=== PATIENT | male | born 1935 | race Caucasian/White ===

== ENCOUNTER 2016-07-27 08:47 | Observation (INO) | payer MEDICARE, BC ==
--- NOTE | 2016-07-27 09:15 | RADIOLOGY REPORT (SQ) ---
EXAM DESCRIPTION: CT HEAD WITHOUT COMPLETED DATE/TIME: 07/27/2016 8:57 am REASON FOR STUDY: bed 15 stroke alert COMPARISON: None. TECHNIQUE: Axial images acquired through the brain without intravenous contrast. Images reviewed wi th bone, brain and subdural windows. Images stored on PACS. All CT scanners at this facility use dose modulation, iterative reconstruction, and/or weight based d osing when appropriate to reduce radiation dose to as low as reasonably achievable (ALARA). [facility]: Dose Right [facility]: CareDose [facility]: Dose Right [facility]: Teradose 4D [facility]: [employer] RADIATION DOSE: 64.61 mGy. LIMITATIONS: None. FINDINGS: VENTRICLES: Normal size and contour. CEREBRUM: There is bifrontal and biparietal moderate chronic small vessel ischemic change in the abe spheric white matter. No CT evidence of large territory acute ischemic change, acute intracranial hemorrhage, mass effect, or midline shift. CEREBELLUM: No masses. No hemorrhage. No alteration of density. No evidence for acute infarction. EXTRAAXIAL SPACES: No fluid collections. No masses. ORBITS AND GLOBE: No intra- or extraconal masses. Normal contour of globe without masses. CALVARIUM: No fracture. PARANASAL SINUSES: No fluid or mucosal thickening. SOFT TISSUES: No mass or hematoma. OTHER: No other significant finding. IMPRESSION: White matter disease. No acute changes COMMENT: Pertinent findings on the imaging study reported as a CRITICAL RESULT to VENITA Hernandez, charge nurse at09:00 on 07/27/2016. Category of Critical Result: CT stroke alert TECHNICAL DOCUMENTATION: JOB ID: [id number] Quality ID # [id number]: Final reports with documentation of one or more dose reduction techniques (e.g., Au tomated exposure control, adjustment of the mA and/or kV according to patient size, use of iterative reconstruction technique) 2010 [employer] All Rights Reserved
[2016-07-27 09:38] LABS: PROTHROMBIN TIME 12.7 SEC (11.4-15.4)
[2016-07-27 09:39] LABS: PARTIAL THROMBOPLASTIN TIME 25.4 SEC (23.5-35.8)
[2016-07-27 09:43] LABS: ABSOLUTE LYMPHOCYTES (AUTO) 0.7 10^3/uL (0.5-4.7); ABSOLUTE MONOCYTES (AUTO) 0.4 10^3/uL (0.1-1.4); ABSOLUTE NEUT (AUTO) 6.5 10^3/uL (1.7-8.2); BASOPHILS % (AUTO) 0.1 % (0-2); HEMATOCRIT 41.1 % (37.9-51.0); HEMOGLOBIN 13.6 g/dL (13.5-17.0); HGB HCT DIFFERENCE -0.3; LYMPHOCYTES % (AUTO) 9.6 % (13-45); MEAN CORPUSCULAR HEMOGLOBIN 32.5 pg (27.0-33.4); MEAN CORPUSCULAR HGB CONC 33.2 g/dL (32.0-36.0); MEAN CORPUSCULAR VOLUME 98 fl (80-97); MONOCYTES % (AUTO) 5.3 % (3-13); RED CELL DISTRIBUTION WIDTH 13.5 % (11.5-14.0); WHITE BLOOD COUNT 7.7 10^3/uL (4.0-10.5)
--- NOTE | 2016-07-27 09:46 | RADIOLOGY REPORT (SQ) ---
EXAM DESCRIPTION: CHEST SINGLE VIEW COMPLETED DATE/TIME: 07/27/2016 9:01 am REASON FOR STUDY: bed 15 stroke alert COMPARISON: None. EXAM PARAMETERS: NUMBER OF VIEWS: One view. TECHNIQUE: Single frontal radiographic view of the chest acquired. RADIATION DOSE: NA LIMITATIONS: None. FINDINGS: LUNGS AND PLEURA: No opacities, masses or pneumothorax. No pleural effusion. MEDIASTINUM AND HILAR STRUCTURES: No masses. Contour normal. HEART AND VASCULAR STRUCTURES: Heart normal in size. Normal vasculature. BONES: No acute findings. HARDWARE: None in the chest. OTHER: No other significant finding. IMPRESSION: NO ACUTE RADIOGRAPHIC FINDING IN THE CHEST. TECHNICAL DOCUMENTATION: JOB ID: [id number]
[2016-07-27 10:03] LABS: ALANINE AMINOTRANSFERASE 39 U/L (21-72); ALBUMIN 4.2 g/dL (3.5-5.0); ALKALINE PHOSPHATASE 69 U/L (38-126); ANION GAP 11 (5-19); ASPARTATE AMINO TRANSFERASE 35 U/L (17-59); BILIRUBIN,DIRECT 0.3 mg/dL (0.0-0.4); BILIRUBIN,TOTAL 0.7 mg/dL (0.2-1.3); BLOOD UREA NITROGEN 18 mg/dL (7-20); CALCIUM 9.6 mg/dL (8.4-10.2); CARBON DIOXIDE 26 mmol/L (22-30); CHLORIDE 98 mmol/L (98-107); CREATINE KINASE 397 U/L (55-170); CREATININE RESULT 0.96 mg/dL (0.52-1.25); GLUCOSE 110 mg/dL (75-110); POTASSIUM 4.4 mmol/L (3.6-5.0); SODIUM 134.8 mmol/L (137-145)
[2016-07-27 10:11] LABS: CREATINE KINASE MB 3.35 ng/mL (<4.55)
[2016-07-27 10:14] LABS: TROPONIN I < 0.012 ng/mL
--- NOTE | 2016-07-27 10:44 | ER Document Report ---
ED General - General Chief Complaint: Slurred Speech Stated Complaint: SLURRED SPEECH Time Seen by Provider: 07/27/16 09:35 - HPI Patient complains to provider of: Strokelike symptoms Notes: Coming in today for evaluation of strokelike symptoms. Upon my evaluation patient is by himself. Patient states he was trying to eat breakfast this morning when he became confused did not understand how the breath is also states the he was told he had slurred speech by his at this time the patient is a and O 3 able to carry on normal conversation with no slurred speech. Patient states he does feel better like his symptoms had resolved. Denies any recent fevers chills nausea vomiting denies any recent head trauma denies a history of ND or stroke in the past. Patient is unable to remember his medication list - Related Data Allergies/Adverse Reactions: Penicillins Allergy (Severe, Verified 03/16/12 20:06) Hives Home Medications: Current Home Medications Naproxen 500 mg PO BIDBS 07/27/16 [History] Pravastatin Sodium [Pravachol] 40 mg PO QHS 07/27/16 [History] Past Medical History - Social History Smoking Status: Never Smoker Frequency of alcohol use: None Drug Abuse: None Family History: Reviewed & Not Pertinent - Past Medical History Cardiac Medical History: Reports: Hx Hypercholesterolemia, Hx Hypertension Denies: Hx Coronary Artery Disease, Hx Heart Attack Pulmonary Medical History: Denies: Hx Asthma, Hx Bronchitis, Hx COPD, Hx Pneumonia Neurological Medical History: Denies: Hx Cerebrovascular Accident, Hx Seizures GI Medical History: Reports: Hx Gastroesophageal Reflux Disease. Denies: Hx Hepatitis, Hx Hiatal Hernia, Hx Ulcer Musculoskeltal Medical History: Reports Hx Arthritis - mild Infectious Medical History: Denies: Hx Hepatitis Past Surgical History: Reports: Hx Tonsillectomy. Denies: Hx Open Heart Surgery , Hx Pacemaker - Immunizations Immunizations up to date: No Hx Diphtheria, Pertussis, Tetanus Vaccination: No Review of Systems - Review of Systems Constitutional: No symptoms reported EENT: No symptoms reported Cardiovascular: No symptoms reported Respiratory: No symptoms reported Gastrointestinal: No symptoms reported Genitourinary: No symptoms reported Male Genitourinary: No symptoms reported Musculoskeletal: No symptoms reported Skin: No symptoms reported Hematologic/Lymphatic: No symptoms reported Neurological/Psychological: Other - Alert speech confusion -: Yes All other systems reviewed and negative Physical Exam - Vital signs Vitals: Pulse Resp BP Pulse Ox 85 20 161/98 H 98 07/27/16 08:50 07/27/16 08:50 07/27/16 08:50 07/27/16 08:50 Interpretation: Normal - General General appearance: Appears well, Alert - HEENT Head: Normocephalic, Atraumatic Eyes: Normal Pupils: PERRL - Respiratory Respiratory status: No respiratory distress Chest status: Nontender Breath sounds: Normal Chest palpation: Normal - Cardiovascular Rhythm: Regular Heart sounds: Normal auscultation Murmur: No - Abdominal Inspection: Normal Distension: No distension Bowel sounds: Normal Tenderness: Nontender Organomegaly: No organomegaly - Back Back: Normal, Nontender - Extremities General upper extremity: Normal inspection, Nontender, Normal color, Normal ROM , Normal temperature General lower extremity: Normal inspection, Nontender, Normal color, Normal ROM , Normal temperature, Normal weight bearing. 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 However patient is able to lift both of his arms and hold them with no pronator drift. Patient is able to tell me his address is name is . the date and the details of the morning events without difficulty Sensory: Normal - Psychological Associated symptoms: Normal affect, Normal mood - Skin Skin Temperature: Warm Skin Moisture: Dry Skin Color: Normal Course - Re-evaluation Re-evalutation: 07/27/16 14:49 07/27/16 15:14 Patient symptoms have resolved discussed with family members of the patient would not be a candidate for thrombolytic therapy. Lab work CT scan chest x- ray does not show any acute pathology. Patient will be admitted to the hospital service for further evaluation of his symptoms - Vital Signs Vital signs: Temp Pulse Resp BP Pulse Ox 97.2 F 85 18 158/86 H 96 07/27/16 08:55 07/27/16 12:00 07/27/16 12:00 07/27/16 12:00 07/27/16 12:00 - Laboratory Result Diagrams: 07/27/16 09:03 07/27/16 09:03 Laboratory results interpreted by me: 07/27/16 07/27/16 07/27/16 09:03 09:03 09:03 RBC 4.20 L MCV 98 H Seg Neutrophils % 85.0 H Lymphocytes % 9.6 L Sodium 134.8 L Creatine Kinase 397 H Vitamin B12 > 1000.0 H Discharge - Discharge Clinical Impression: Slurred speech resolved, Confusion resolved TIA (transient ischemic attack) Qualifiers: Transient cerebral ischemia type: unspecified Qualified Code(s): G45.9 - Transient cerebral ischemic attack, unspecified Disposition: ADMITTED OBSERVATION Admitting Provider: [facility] Admitted: Telemetry
--- NOTE | 2016-07-27 10:45 | EKG REPORT ---
SEVERITY:- ABNORMAL ECG - SINUS RHYTHM LEFT ATRIAL ABNORMALITY : Confirmed by: Antonio García 27-Jul-2016 10:44:31
[2016-07-27] MEDS ORDERED: ACETAMINOPHEN 325 MG TABLET PO PRN (11:10)
[2016-07-27] MEDS ORDERED: HYDROCODONE/ACETAMINOPHEN 5-325 MG TABLET PO PRN (11:10)
[2016-07-27] MEDS ORDERED: ONDANSETRON HCL INJ/PF 4 MG/2 ML SDV IV PRN (11:10)
[2016-07-27 11:38] LABS: APPEARANCE,URINE CLEAR; BILIRUBIN,URINE NEGATIVE (NEGATIVE); GLUCOSE, URINE NEGATIVE (NEGATIVE); KETONES,URINE NEGATIVE (NEGATIVE); LEUKOCYTE ESTERASE,URINE NEGATIVE (NEGATIVE); NITRITE,URINE NEGATIVE (NEGATIVE); PROTEIN,URINE NEGATIVE (NEGATIVE); URINE SPECIFIC GRAVITY 1.016; UROBILINOGEN,URINE NEGATIVE mg/dL (<2.0)
[2016-07-27] MEDS ORDERED: ENOXAPARIN SODIUM INJ 40 MG/0.4 ML DISP.SYRIN SUBCUT ONE (12:00)
--- NOTE | 2016-07-27 12:48 | RADIOLOGY REPORT (SQ) ---
EXAM DESCRIPTION: MRI HEAD WITHOUT COMPLETED DATE/TIME: 07/27/2016 12:33 pm REASON FOR STUDY: CVA, neurologic symptoms R53.1 WEAKNESS COMPARISON: CT brain 07/27/2016 TECHNIQUE: Multiplanar imaging includes non-contrasted T1, T2, FLAIR, and diffusion with ADC map seq uences. Images stored on PACS. LIMITATIONS: None. FINDINGS: ANATOMY: No developmental anomalies. Normal vascular flow voids. Pituitary fossa normal. CSF SPACES: Normal in size and contour. No hemorrhage. CEREBRUM AND CEREBELLUM: Chronic moderate white matter disease in the bifrontal and biparietal region s with increased FLAIR/ T2 signal. 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 Old lacunar infarct in the left mid aishwarya. No MR findings of acute ischemic change, acute intracranial hemorrhage, mass effect, or midline shift . Internal auditory canals, cerebello-pontine angles, mastoids normal. DIFFUSION IMAGING: Negative for acute or sub-acute infarction. ORBITS: No masses. Globes normal. PARANASAL SINUSES: No fluid levels. Mucosa normal. OTHER: No other significant finding. IMPRESSION: Chronic small vessel disease. No acute findings TECHNICAL DOCUMENTATION: JOB ID: [id number] [employer]- All Rights Reserved
[2016-07-27 21:16] LABS: ABSOLUTE LYMPHOCYTES (AUTO) 0.8 10^3/uL (0.5-4.7); ABSOLUTE MONOCYTES (AUTO) 0.8 10^3/uL (0.1-1.4); ABSOLUTE NEUT (AUTO) 7.4 10^3/uL (1.7-8.2); BASOPHILS % (AUTO) 0.1 % (0-2); EOSINOPHILS % (AUTO) 0.1 % (0-6); HEMATOCRIT 38.4 % (37.9-51.0); HEMOGLOBIN 12.7 g/dL (13.5-17.0); HGB HCT DIFFERENCE -0.3; LYMPHOCYTES % (AUTO) 9.2 % (13-45); MEAN CORPUSCULAR HEMOGLOBIN 32.1 pg (27.0-33.4); MEAN CORPUSCULAR HGB CONC 33.1 g/dL (32.0-36.0); MEAN CORPUSCULAR VOLUME 97 fl (80-97); MONOCYTES % (AUTO) 8.6 % (3-13); RED BLOOD COUNT 3.96 10^6/uL (4.35-5.55); RED CELL DISTRIBUTION WIDTH 13.5 % (11.5-14.0)
[2016-07-27 21:21] LABS: ANION GAP 11 (5-19); BLOOD UREA NITROGEN 20 mg/dL (7-20); CALCIUM 9.3 mg/dL (8.4-10.2); CARBON DIOXIDE 26 mmol/L (22-30); CHLORIDE 98 mmol/L (98-107); CREATININE RESULT 1.09 mg/dL (0.52-1.25); GLUCOSE 126 mg/dL (75-110); MAGNESIUM 2.1 mg/dL (1.6-2.3); POTASSIUM 3.9 mmol/L (3.6-5.0); SODIUM 134.7 mmol/L (137-145)
[2016-07-27] MEDS ORDERED: ATORVASTATIN CALCIUM 20 MG TABLET PO SCH (22:00)
[2016-07-28 05:53] LABS: CHOLESTEROL 171.26 mg/dL (0-200); Direct HDL 64 mg/dL (>40); TRIGLYCERIDES 122 mg/dL (<150)
[2016-07-28 06:04] LABS: DIRECT LDL 58 mg/dL (<100)
[2016-07-28] MEDS: ENOXAPARIN SODIUM INJ 40 MG/0.4 ML DISP.SYRIN SUBCUT SCH (07:50)
[2016-07-28] MEDS ORDERED: ENOXAPARIN SODIUM INJ 40 MG/0.4 ML DISP.SYRIN SUBCUT SCH (08:00)
--- NOTE | 2016-07-28 09:22 | EKG REPORT ---
SEVERITY:- BORDERLINE ECG - SINUS RHYTHM VENTRICULAR PREMATURE COMPLEX PROBABLE LEFT ATRIAL ABNORMALITY : Confirmed by: Antonio García 28-Jul-2016 09:21:35
[2016-07-28] MEDS ORDERED: ASPIRIN 325 MG TABLET, ENT COATED PO SCH (10:00)
[2016-07-28] MEDS: CLOPIDOGREL BISULFATE 75 MG TABLET PO SCH (11:21)
--- NOTE | 2016-07-28 12:08 | PDOC H&P ---
History of Present Illness Admission Date/PCP: 07/27/16 11:10 MIGUEL EMERY MD Patient complains of: slurred speech History of Present Illness: JAQUI GERBER is a 81 year old male presents to the ED from home fater sudden onset of slurred speech, garbled words, difficulty getting his words out in spite of knowing what he wanted to say. He awoke in the morning feeling his usual self, no recent illness, but a couple hours later while working around the house on simple chores he suddenly had the above symptoms. there was no aura and no asct'd N/T, WILSON, vision orheraing changes, confusion, abnl movements , LOC, tinnitus, unilateral weakness, difficulty swallowing, coughing, choking or gagging, never had anything like this before. no aura. takes a daily ASA for primary prevention as his MD instructed. he denies chest pain, palpitations , fever/chills, n/v/d. by the time he was evald in the ED his symptoms had resolved; no significant findings on imaging or labs and we were asked to admit for TIA evaluation. Past Medical History Cardiac Medical History: Reports: Hyperlipidema, Hypertension Denies: Coronary Artery Disease, Myocardial Infarction Pulmonary Medical History: Denies: Asthma, Bronchitis, Chronic Obstructive Pulmonary Disease (COPD), Pneumonia Neurological Medical History: Denies: Hemorrhagic CVA, Ischemic CVA, Seizures Endocrine Medical History: Denies: Diabetes Mellitus Type 1, Diabetes Mellitus Type 2 GI Medical History: Reports: Gastroesophageal Reflux Disease Denies: Hepatitis, Hiatal Hernia Musculoskeltal Medical History: Reports: Arthritis - mild Hematology: Denies: Anemia, Sickle Cell Disease Past Surgical History Past Surgical History: Reports: Tonsillectomy Denies: Pacemaker Social History Information Source: Patient Smoking Status: Never Smoker Frequency of Alcohol Use: None Hx Recreational Drug Use: No Hx Prescription Drug Abuse: No - Advance Directive Resuscitation Status: Full Code Family History Family History: CAD Parental Family History Reviewed: Yes Children Family History Reviewed: Yes Sibling(s) Family History Reviewed.: Yes Medication/Allergy Home Medications: Naproxen 500 mg PO BIDBS 07/27/16 Pravastatin Sodium [Pravachol] 40 mg PO QHS 07/27/16 Allergies/Adverse Reactions: Penicillins Allergy (Severe, Verified 03/16/12 20:06) Hives Review of Systems Constitutional: ABSENT: chills, fever(s), headache(s), weight gain, weight loss Eyes: ABSENT: visual disturbances Ears: ABSENT: hearing changes Cardiovascular: ABSENT: chest pain, dyspnea on exertion, edema, orthropnea, palpitations Respiratory: ABSENT: cough, hemoptysis Gastrointestinal: ABSENT: abdominal pain, constipation, diarrhea, hematemesis, hematochezia, nausea, vomiting Genitourinary: ABSENT: dysuria, hematuria Musculoskeletal: ABSENT: joint swelling Integumentary: ABSENT: rash, wounds Neurological: PRESENT: abnormal speech. ABSENT: abnormal gait, confusion, dizziness, focal weakness, lack of coordination, numbness, paresthesias, syncope , tingling Psychiatric: ABSENT: anxiety, depression, homidical ideation, suicidal ideation Endocrine: ABSENT: cold intolerance, heat intolerance, polydipsia, polyuria Hematologic/Lymphatic: ABSENT: easy bleeding, easy bruising Physical Exam Vital Signs: Temp Pulse Resp BP Pulse Ox 97.6 F 79 16 153/76 H 96 07/28/16 08:15 07/28/16 08:15 07/28/16 08:15 07/28/16 08:15 07/28/16 08:15 Intake & Output 07/27/16 07/28/16 07/29/16 06:59 06:59 06:59 Intake Total 377 Balance 377 Weight 78 kg General appearance: PRESENT: no acute distress, well-developed, well-nourished Head exam: PRESENT: atraumatic, normocephalic Eye exam: PRESENT: EOMI, PERRLA. ABSENT: conjunctival injection, nystagmus, scleral icterus Mouth exam: PRESENT: moist, neck supple Neck exam: PRESENT: full ROM. ABSENT: JVD, lymphadenopathy, tracheal deviation Respiratory exam: PRESENT: clear to auscultation carlos enrique, unlabored. ABSENT: accessory muscle use Cardiovascular exam: PRESENT: RRR, systolic murmur. ABSENT: tachycardia Pulses: PRESENT: normal radial pulses, normal dorsalis pedis pul Vascular exam: PRESENT: normal capillary refill GI/Abdominal exam: PRESENT: normal bowel sounds, soft. ABSENT: tenderness Musculoskeletal exam: PRESENT: ambulatory, full ROM Neurological exam: PRESENT: alert, awake, oriented to person, oriented to place , oriented to time, oriented to situation, reflexes normal. ABSENT: motor sensory deficit, aphasic Psychiatric exam: PRESENT: appropriate affect, normal mood Focused psych exam: ABSENT: flight of ideas, pressured speech, psychomotor agitation Skin exam: PRESENT: dry, warm Results Laboratory Results: 07/27/16 21:00 07/27/16 21:00 07/27/16 07/27/16 07/28/16 21:00 21:00 05:04 WBC 9.0 RBC 3.96 L Hgb 12.7 L Hct 38.4 MCV 97 MCH 32.1 MCHC 33.1 RDW 13.5 Plt Count 243 Seg Neutrophils % 82.0 H Lymphocytes % 9.2 L Monocytes % 8.6 Eosinophils % 0.1 Basophils % 0.1 Absolute Neutrophils 7.4 Absolute Lymphocytes 0.8 Absolute Monocytes 0.8 Absolute Eosinophils 0.0 Absolute Basophils 0.0 Sodium 134.7 L Potassium 3.9 Chloride 98 Carbon Dioxide 26 Anion Gap 11 BUN 20 Creatinine 1.09 Est GFR ( Amer) > 60 Est GFR (Non-Af Amer) > 60 Glucose 126 H Calcium 9.3 Magnesium 2.1 Triglycerides 122 Cholesterol 171.26 LDL Cholesterol Direct 58 VLDL Cholesterol 24.0 HDL Cholesterol 64 07/27/16 21:00 Troponin I < 0.012 Impressions: Head MRI 07/27/16 00:00 IMPRESSION: Chronic small vessel disease. No acute findings Chest X-Ray 07/27/16 08:48 IMPRESSION: NO ACUTE RADIOGRAPHIC FINDING IN THE CHEST. Head CT 07/27/16 08:48 IMPRESSION: White matter disease. No acute changes Assessment & Plan - Diagnosis (1) TIA (transient ischemic attack) Qualifiers: Transient cerebral ischemia type: unspecified Qualified Code(s): G45.9 - Transient cerebral ischemic attack, unspecified Is this a current diagnosis for this admission?: YesPlan: most likely explanation; admit for overnight monitoring on telemetry, neuro cks and screen for ischemia and correctable risk factors with MRI brain, carotid dopplers and further labs. continue ASA for now, allow permissive HTN for first 24hrs until he fully declares himself. (2) Essential (primary) hypertension Is this a current diagnosis for this admission?: YesPlan: ultimate goal is <125/85 but not for the next 24-48hrs. (3) Hyperlipidemia Qualifiers: Hyperlipidemia type: unspecified Qualified Code(s): E78.5 - Hyperlipidemia, unspecified Is this a current diagnosis for this admission?: YesPlan: ck lipids in am, continue statin - Time Time Spent: 50 to 70 Minutes Medications reviewed and adjusted accordingly: Yes Anticipated discharge: Home Within: within 24 hours
--- NOTE | 2016-07-28 12:20 | PDOC PROGRESS REPORT ---
Subjective Progress Note for:: 07/28/16 Subjective:: reason for visit: f/u TIA, HTN hospital course: JAQUI GERBER is a 81 year old male presents to the ED from home fater sudden onset of slurred speech, garbled words, difficulty getting his words out in spite of knowing what he wanted to say. He awoke in the morning feeling his usual self, no recent illness, but a couple hours later while working around the house on simple chores he suddenly had the above symptoms. there was no aura and no asct'd N/T, WILSON, vision orheraing changes, confusion, abnl movements, LOC, tinnitus, unilateral weakness, difficulty swallowing, coughing, choking or gagging, never had anything like this before. no aura. takes a daily ASA for primary prevention as his MD instructed. he denies chest pain, palpitations, fever/chills, n/v/d. by the time he was evald in the ED his symptoms had resolved; no significant findings on imaging or labs and we were asked to admit for TIA evaluation. overnight he had another episode lasting just a few seconds where he once again couldn't get his words out and slurred speech; at about this same time he was noted to have a 25 beat run of wide complex tachycardia on telemetry monitoring. by the time staff arrived at the bedside his symptoms had resolved and he denies palpitations, c/o only mild chest pressure for a brief moment. he was not confused or post-ictal appearing and was otherwise hemodynamically stable. 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 carotids are still pending. ROS: as above, total 10 systems reviewed, remaining systems are negative Physical Exam Vital Signs: Temp Pulse Resp BP Pulse Ox 97.6 F 79 16 153/76 H 96 07/28/16 08:15 07/28/16 08:15 07/28/16 08:15 07/28/16 08:15 07/28/16 08:15 Intake & Output 07/27/16 07/28/16 07/29/16 06:59 06:59 06:59 Intake Total 377 Balance 377 Weight 78 kg General appearance: PRESENT: no acute distress, well-developed, well-nourished Head exam: PRESENT: atraumatic, normocephalic Eye exam: PRESENT: EOMI, PERRLA. ABSENT: conjunctival injection, nystagmus, scleral icterus Mouth exam: PRESENT: moist, neck supple Neck exam: PRESENT: full ROM. ABSENT: tracheal deviation Respiratory exam: PRESENT: clear to auscultation carlos enrique. ABSENT: accessory muscle use Cardiovascular exam: PRESENT: RRR, systolic murmur Pulses: PRESENT: normal radial pulses, normal dorsalis pedis pul Vascular exam: PRESENT: normal capillary refill GI/Abdominal exam: PRESENT: normal bowel sounds, soft. ABSENT: tenderness Musculoskeletal exam: PRESENT: full ROM. ABSENT: tenderness Neurological exam: PRESENT: alert, awake, oriented to person, oriented to place , oriented to time, oriented to situation, reflexes normal. ABSENT: ataxia, motor sensory deficit, aphasic Psychiatric exam: PRESENT: appropriate affect, normal mood Skin exam: PRESENT: dry, warm Results Laboratory Results: 07/27/16 21:00 07/27/16 21:00 07/27/16 07/27/16 07/28/16 21:00 21:00 05:04 WBC 9.0 RBC 3.96 L Hgb 12.7 L Hct 38.4 MCV 97 MCH 32.1 MCHC 33.1 RDW 13.5 Plt Count 243 Seg Neutrophils % 82.0 H Lymphocytes % 9.2 L Monocytes % 8.6 Eosinophils % 0.1 Basophils % 0.1 Absolute Neutrophils 7.4 Absolute Lymphocytes 0.8 Absolute Monocytes 0.8 Absolute Eosinophils 0.0 Absolute Basophils 0.0 Sodium 134.7 L Potassium 3.9 Chloride 98 Carbon Dioxide 26 Anion Gap 11 BUN 20 Creatinine 1.09 Est GFR ( Amer) > 60 Est GFR (Non-Af Amer) > 60 Glucose 126 H Calcium 9.3 Magnesium 2.1 Triglycerides 122 Cholesterol 171.26 LDL Cholesterol Direct 58 VLDL Cholesterol 24.0 HDL Cholesterol 64 07/27/16 21:00 Troponin I < 0.012 EKG Comments: ecg shows no ischemic changes and his troponins are negative; review of telemetry shows 2 multi-focal PVCs preceding this 25 beat run of NSVT. Impressions: Head MRI 07/27/16 00:00 IMPRESSION: Chronic small vessel disease. No acute findings Chest X-Ray 07/27/16 08:48 IMPRESSION: NO ACUTE RADIOGRAPHIC FINDING IN THE CHEST. Head CT 07/27/16 08:48 IMPRESSION: White matter disease. No acute changes Assessment & Plan - Diagnosis (1) TIA (transient ischemic attack) Qualifiers: Transient cerebral ischemia type: unspecified Qualified Code(s): G45.9 - Transient cerebral ischemic attack, unspecified Is this a current diagnosis for this admission?: YesPlan: most likely explanation, especially in light of his MRI findings. f/u carotids. increase statin to full dose, chg to plavix from ASA. (2) NSVT (nonsustained ventricular tachycardia) Is this a current diagnosis for this admission?: YesPlan: unclear whether contributing to his presentation or not, he did have recurrence of his symptoms at or near the time of this event. He has enough risk factors to warrant ischemic investigation. 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 (3) Essential (primary) hypertension Is this a current diagnosis for this admission?: YesPlan: ultimate goal is <125/85 but not for the next 24-48hrs. (4) Hyperlipidemia Qualifiers: Hyperlipidemia type: unspecified Qualified Code(s): E78.5 - Hyperlipidemia, unspecified Is this a current diagnosis for this admission?: YesPlan: ck lipids in am, continue statin - Time Time Spent with patient: 35 or more minutes Medications reviewed and adjusted accordingly: Yes Anticipated discharge: Home Within: within 48 hours
[2016-07-28] MEDS ORDERED: ATORVASTATIN CALCIUM 20 MG TABLET PO SCH (22:00)
[2016-07-29] MEDS: ENOXAPARIN SODIUM INJ 40 MG/0.4 ML DISP.SYRIN SUBCUT SCH (10:41)
[2016-07-29] MEDS ORDERED: REGADENOSON INJ 0.4 MG/5 ML DISP.SYRIN IV ONE (11:33)
--- NOTE | 2016-07-29 13:30 | RADIOLOGY REPORT (SQ) ---
EXAM DESCRIPTION: CAROTID DOPPLER COMPLETED DATE/TIME: 07/29/2016 1:18 pm REASON FOR STUDY: CVA R53.1 WEAKNESS I47.2 VENTRICULAR TACHYCARDIA R07.9 CHEST PAIN, UNSPECIFIED COMPARISON: None. TECHNIQUE: Grayscale ultrasound, Doppler velocity and spectra, and color Doppler images acquired of the extra-cranial carotid and vertebral arteries. Images stored on PACS. LIMITATIONS: None. FINDINGS: RIGHT CAROTID CCA Velocities: Within normal limits. ICA Velocities Peak systolic 0.99 m/s. End diastolic 0.31 m/s. Proximal ICA/CCA peak systolic ratio 1.5. There is complex plaque in the carotid bulb and proximal ICA. LEFT CAROTID CCA Velocities: Within normal limits. ICA Velocities Peak systolic 0.85 m/s. End diastolic 0.28 m/s. Proximal ICA/CCA peak systolic ratio 1.1. There is complex plaque in the carotid bulb and proximal ICA. VERTEBRAL ARTERIES: Antegrade flow. Normal waveforms. SUBCLAVIAN ARTERIES: No finding. OTHER: No other significant finding. IMPRESSION: Complex plaque bilaterally. No hemodynamically significant stenosis. COMMENT: Quality ID #[id number]: Velocity criteria are extrapolated from the diameter data as defined by t he Society of Radiologists in Ultrasound Consensus Conference. Radiology 2003: 229; 340-346. TECHNICAL DOCUMENTATION: JOB ID: [id number] [employer]- All Rights Reserved
[2016-07-29] MEDS: CLOPIDOGREL BISULFATE 75 MG TABLET PO SCH (13:43)
--- NOTE | 2016-07-29 15:12 | PDOC DISCHARGE SUMMARY ---
General - Admit/Disc Date/PCP Admission Date/Primary Care Provider: 07/27/16 11:10 MIGUEL EMERY MD Discharge Date: 07/29/16 - Discharge Diagnosis (1) TIA (transient ischemic attack) Is this a current diagnosis for this admission?: YesSummary: one recurrence of his symptoms while here and the only modifiable risk factor I could find is complex plaque in his bilat carotid dopplers. his chol panel shows excellent control so therapeutic options limited to changing antiplt Tx from ASA to plavix, push statin to max dose, exercise regularly, proper diet, control of his BP to goal <125/85 and surveillance dopplers of plaque to monitor for progression and vascular referral if worsens. will add lisinopril and plavix, defer to his PCP regarding statin dose at f/u in one week. (2) NSVT (nonsustained ventricular tachycardia) Is this a current diagnosis for this admission?: YesSummary: asymptomatic and no recurrence, no clear correlation to his presentation. cardiolyte stress test was negative for ischemia. f/u PCP, may need beta lm and event monitor if recurs. (3) Essential (primary) hypertension Is this a current diagnosis for this admission?: YesSummary: not at goal, add ACEi in low dose, f/u with his PCP in one week, will need BMP to monitor renal function and lytes (4) Hyperlipidemia Is this a current diagnosis for this admission?: YesSummary: as above - Additional Information Resuscitation Status: Full Code Discharge Diet: Cardiac Discharge Activity: Activity As Tolerated Home Medications: Naproxen 500 mg PO BIDBS 07/27/16 Pravastatin Sodium [Pravachol] 40 mg PO QHS 07/27/16 Clopidogrel Bisulfate [Plavix 75 mg Tablet] 75 mg PO DAILY@1200 #30 tablet 07/29 History of Present Illness Patient complains of: possible CVA History of Present Illness: JAQUI GERBER is a 81 year old male presents to the ED from home fater sudden onset of slurred speech, garbled words, difficulty getting his words out in spite of knowing what he wanted to say. Hospital Course Hospital Course: He awoke in the morning feeling his usual self, no recent illness, but a couple hours later while working around the house on simple chores he suddenly had the above symptoms. there was no aura and no asct'd N/T, WILSON, vision orheraing changes, confusion, abnl movements, LOC, tinnitus, unilateral weakness , difficulty swallowing, coughing, choking or gagging, never had anything like this before. no aura. takes a daily ASA for primary prevention as his MD instructed. he denies chest pain, palpitations, fever/chills, n/v/d. by the time he was evald in the ED his symptoms had resolved; no significant findings on imaging or labs and we were asked to admit for TIA evaluation. overnight he had another episode lasting just a few seconds where he once again couldn't get his words out and slurred speech; at about this same time he was noted to have a 25 beat run of wide complex tachycardia on telemetry monitoring. by the time staff arrived at the bedside his symptoms had resolved and he denies palpitations, c/o only mild chest pressure for a brief moment. he was not confused or post-ictal appearing and was otherwise hemodynamically stable. he agreed to cardiolyte stress testing which is negative for ischemia. he should f/u with his PCP and if recurs will need beta lm and event monitor. 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 carotids show bilat <50% complex plaque at the bulbs. no further recurrence of his symptoms. maximize medical therapy as discussed above. Physical Exam Vital Signs: Temp Pulse Resp BP Pulse Ox 98.4 F 73 16 153/90 H 93 07/29/16 07:10 07/29/16 07:10 07/29/16 07:10 07/29/16 07:10 07/29/16 07:10 Intake & Output 07/28/16 07/29/16 07/30/16 06:59 06:59 06:59 Intake Total 377 757 Balance 377 757 Weight 78 kg 76.8 kg General appearance: PRESENT: no acute distress, well-developed, well-nourished Head exam: PRESENT: atraumatic, normocephalic Eye exam: PRESENT: conjunctival injection, EOMI, PERRLA. ABSENT: nystagmus, scleral icterus Mouth exam: PRESENT: neck supple Neck exam: PRESENT: full ROM. ABSENT: tracheal deviation Respiratory exam: PRESENT: clear to auscultation carlos enrique. ABSENT: accessory muscle use Cardiovascular exam: PRESENT: RRR. ABSENT: systolic murmur Pulses: PRESENT: normal radial pulses, normal dorsalis pedis pul GI/Abdominal exam: PRESENT: normal bowel sounds, soft. ABSENT: tenderness Extremities exam: ABSENT: calf tenderness, tenderness Musculoskeletal exam: PRESENT: ambulatory, full ROM Neurological exam: PRESENT: alert, awake, oriented to person, oriented to place , oriented to time, oriented to situation Psychiatric exam: PRESENT: appropriate affect, normal mood Skin exam: PRESENT: dry, warm Results Laboratory Results: 07/27/16 21:00 07/27/16 21:00 07/27/16 07/29/16 21:00 07:06 Troponin I < 0.012 < 0.012 Impressions: Head MRI 07/27/16 00:00 IMPRESSION: Chronic small vessel disease. No acute findings Chest X-Ray 07/27/16 08:48 IMPRESSION: NO ACUTE RADIOGRAPHIC FINDING IN THE CHEST. Head CT 07/27/16 08:48 IMPRESSION: White matter disease. No acute changes Carotid Doppler Study 07/29/16 00:00 IMPRESSION: Complex plaque bilaterally. No hemodynamically significant stenosis. Qualifiers PATEINT BEING DISCHARGED WITH ANY OF THE FOLLOWING DIAGNOSIS?: No VTE patient discharged on overlapping Therapy?: No Reason(s) for not prescribing Overlap Therapy:: Not indicated Plan Discharge Plan: d/c home with f/u in one week with PCP; return to the ED within 3 hrs of onset of recurrent symptoms. Time Spent: Greater than 30 Minutes
[2016-07-29 16:05] VITALS: BP 160/87
--- NOTE | 2016-07-29 19:03 | DRAGON STRESS TEST REPORT ---
Intravenous Lexiscan Cardiolite stress test using single photon emmision computerized tomography. Date of procedure: 07/29/2016. Ordering Provider: Dr. Konstantin Silva. Patient's status: Inpatient Indication: Chest pain. Coronary risk factors: Age, hypertension, dyslipidemia , and family history of coronary artery disease. Resting EKG: Sinus rhythm. Within normal limits. One PVC. Stress EKG:[ No changes of ischemia. The patient had no chest pain or discomfort, and there were no arrhythmias seen. Reason for termination: Protocol. Conclusions: Normal EKG and hemodynamic response to IV Lexiscan. Nuclear data: At rest the patient was given 12.68 millicuries of technetium 99m sestamibi injected intravenously. As per protocol rest non gated SPECT images were obtained. Subsequently the patient was given intravenous Lexiscan at a dose of 0.4 mg in 5 mL intravenously, followed by flush with normal saline. Subsequently the stress dose of 37.9 millicuries of technetium 99m sestamibi was injected intravenously. As per protocol stress gated images were obtained. Nuclear interpretation: Review of images showed that all segments of the myocardium had normal perfusion at rest, and normal perfusion post stress with IV Lexiscan. All segments of the myocardium had normal motion, contraction, and thickening by gated study. T. I D. ratio was normal at 1.13. Computer read rest, and stress left ventricular ejection fraction were 69 %, and 69 %, respectively. 1. There is no scintigraphic evidence of Lexiscan induced myocardial ischemia. 2. There is no scintigraphic evidence of myocardial infarction/scar. Recommendations: Aggressive risk factor modification, and treating the underlying co- morbidities. MTDD
== END 2016-07-29 16:13 | disposition home or self-care (01) ==
LOC: ER 08:47 → EH 10:52 → UNDOADMOB 10:52 → EH 11:10 → 3S 13:14
PROVIDERS: ADMIT Internal Medicine; ATTEND Internal Medicine
DX: G45.9 Transient cerebral ischemic attack, unspecified (principal); I47.2 Ventricular tachycardia; I10 Essential (primary) hypertension; E78.5 Hyperlipidemia, unspecified; I65.23 Occlusion and stenosis of bilateral carotid arteries; R07.89 Other chest pain; M19.90 Unspecified osteoarthritis, unspecified site; Z79.02 Long term (current) use of antithrombotics/antiplatelets; Z79.899 Other long term (current) drug therapy; Z79.1 Long term (current) use of non-steroidal anti-inflammatories (NSAID); Z79.82 Long term (current) use of aspirin; Z82.49 Family history of ischemic heart disease and other diseases of the circulatory system
CPT/HCPCS: 93005 ×2; 99285; 96372; 36415 ×3; 82553; 82607; 82550; 83690; 83735; 84443; 85025; 85610; 85730; 80048; 80053; 81001; 84484 ×2; 83036; 80061; 93017; 93880; 70551; 71010; 78452; 70450; 93010; 97162; A9500; J2785; A9270 ×3; J1650 ×3; J3490 ×3; Q9969; G8978; G8979; G8980; G0378

== ENCOUNTER 2016-12-08 09:59 | Emergency (ER) | payer MEDICARE, BC ==
--- NOTE | 2016-12-08 10:10 | ER Document Report ---
ED Medical Screen (RME) - General Chief Complaint: S/S of Possible Stroke Stated Complaint: WEAKNESS Time Seen by Provider: 12/08/16 10:08 Mode of Arrival: Ambulatory Information source: Patient TRAVEL OUTSIDE OF THE [place] IN LAST 30 DAYS: No - HPI Patient complains to provider of: Right arm weakness, nausea Notes: 12/08/16 10:09 Patient is an 81-year-old male presenting to the emergency room complaining of elevated blood pressure with right arm weakness and nausea, interim started approximately 1 hour ago, he reports a history of a TIA in July of this year - Related Data Allergies/Adverse Reactions: Penicillins Allergy (Severe, Verified 12/08/16 10:02) Hives Past Medical History - Past Medical History Cardiac Medical History: Reports: Hx Hypercholesterolemia, Hx Hypertension Denies: Hx Coronary Artery Disease, Hx Heart Attack Pulmonary Medical History: Denies: Hx Asthma, Hx Bronchitis, Hx COPD, Hx Pneumonia Neurological Medical History: Denies: Hx Cerebrovascular Accident, Hx Seizures Endocrine Medical History: Denies: Hx Diabetes Mellitus Type 1, Hx Diabetes Mellitus Type 2 Renal/ Medical History: Denies: Hx Peritoneal Dialysis GI Medical History: Reports: Hx Gastroesophageal Reflux Disease. Denies: Hx Hepatitis, Hx Hiatal Hernia, Hx Ulcer Musculoskeltal Medical History: Reports Hx Arthritis - mild Infectious Medical History: Denies: Hx Hepatitis Past Surgical History: Reports: Hx Tonsillectomy. Denies: Hx Open Heart Surgery , Hx Pacemaker - Immunizations Immunizations up to date: No Hx Diphtheria, Pertussis, Tetanus Vaccination: No Physical Exam - Vital signs Vitals: Temp Pulse Resp BP Pulse Ox 98.0 F 76 12 160/82 H 100 12/08/16 10:02 12/08/16 10:02 12/08/16 10:02 12/08/16 10:02 12/08/16 10:02 Course - Vital Signs Vital signs: Temp Pulse Resp BP Pulse Ox 98.0 F 76 12 160/82 H 100 12/08/16 10:02 12/08/16 10:02 12/08/16 10:02 12/08/16 10:02 12/08/16 10:02
[2016-12-08 10:38] LABS: ABSOLUTE MONOCYTES (AUTO) 0.6 10^3/uL (0.1-1.4); ABSOLUTE NEUT (AUTO) 4.4 10^3/uL (1.7-8.2); BASOPHILS % (AUTO) 0.4 % (0-2); EOSINOPHILS % (AUTO) 0.7 % (0-6); HEMATOCRIT 37.8 % (37.9-51.0); HEMOGLOBIN 12.9 g/dL (13.5-17.0); HGB HCT DIFFERENCE 0.9; LYMPHOCYTES % (AUTO) 16.8 % (13-45); MEAN CORPUSCULAR HEMOGLOBIN 32.8 pg (27.0-33.4); MEAN CORPUSCULAR HGB CONC 34.1 g/dL (32.0-36.0); MEAN CORPUSCULAR VOLUME 96 fl (80-97); MONOCYTES % (AUTO) 10.5 % (3-13); PARTIAL THROMBOPLASTIN TIME 25.1 SEC (23.5-35.8); PROTHROMBIN TIME 12.4 SEC (11.4-15.4); RED BLOOD COUNT 3.92 10^6/uL (4.35-5.55); RED CELL DISTRIBUTION WIDTH 14.1 % (11.5-14.0); SEGMENTED NEUTROPHILS % (AUTO) 71.6 % (42-78); WHITE BLOOD COUNT 6.1 10^3/uL (4.0-10.5)
--- NOTE | 2016-12-08 10:45 | RADIOLOGY REPORT (SQ) ---
EXAM DESCRIPTION: CT HEAD WITHOUT COMPLETED DATE/TIME: 12/08/2016 10:18 am REASON FOR STUDY: right arm weakness COMPARISON: CT brain 07/27/2016 MRI brain 07/27/2016 Carotid Doppler 07/29/2016 TECHNIQUE: Axial images acquired through the brain without intravenous contrast. Images reviewed wi th bone, brain and subdural windows. Images stored on PACS. All CT scanners at this facility use dose modulation, iterative reconstruction, and/or weight based d osing when appropriate to reduce radiation dose to as low as reasonably achievable (ALARA). [facility]: Dose Right [facility]: CareDose [facility]: Dose Right [facility]: Teradose 4D [facility]: Smart Technologies RADIATION DOSE: Up-to-date CT equipment and radiation dose reduction techniques were employed. CTDIv ol: 64.6 mGy. DLP: 1163 mGy-cm. mGy. LIMITATIONS: None. FINDINGS: VENTRICLES: Normal size and contour. CEREBRUM: No masses. No acute hemorrhage. No midline shift. No evidence for acute infarction. Mode rate small vessel ischemic change in the deep bifrontal and biparietal periventricular white matter. Old lacunar infarct in the left lateral basal ganglia. CEREBELLUM: No masses. No hemorrhage. No alteration of density. No evidence for acute infarction. EXTRAAXIAL SPACES: No fluid collections. No masses. ORBITS AND GLOBE: No intra- or extraconal masses. Normal contour of globe without masses. CALVARIUM: No fracture. PARANASAL SINUSES: No fluid or mucosal thickening. SOFT TISSUES: No mass or hematoma. OTHER: No other significant finding. IMPRESSION: No acute findings. EVIDENCE OF ACUTE STROKE: NO. COMMENT: Quality ID # [id number]: Final reports with documentation of one or more dose reduction techniques (e.g., Automated exposure control, adjustment of the mA and/or kV according to patient size, use of iterative reconstruction technique) TECHNICAL DOCUMENTATION: JOB ID: [id number]- All Rights Reserved
--- NOTE | 2016-12-08 10:46 | RADIOLOGY REPORT (SQ) ---
EXAM DESCRIPTION: CHEST SINGLE VIEW COMPLETED DATE/TIME: 12/08/2016 10:22 am REASON FOR STUDY: right arm weakness COMPARISON: AP chest 07/27/2016 EXAM PARAMETERS: NUMBER OF VIEWS: One view. TECHNIQUE: Single frontal radiographic view of the chest acquired. RADIATION DOSE: NA LIMITATIONS: None. FINDINGS: LUNGS AND PLEURA: No opacities, masses or pneumothorax. No pleural effusion. MEDIASTINUM AND HILAR STRUCTURES: No masses. Contour normal. HEART AND VASCULAR STRUCTURES: Heart normal in size. Normal vasculature. BONES: No acute findings. HARDWARE: None in the chest. OTHER: No other significant finding. IMPRESSION: NO ACUTE RADIOGRAPHIC FINDING IN THE CHEST. TECHNICAL DOCUMENTATION: JOB ID: [id number]
--- NOTE | 2016-12-08 10:49 | ER Document Report ---
ED General - General Mode of Arrival: Ambulatory Information source: Patient TRAVEL OUTSIDE OF THE [place] IN LAST 30 DAYS: No - HPI Onset: This morning Associated symptoms: Other - see HPI <ARISTEO SOTO - Last Filed: 12/08/16 12:54> <GERBER SINGLETON - Last Filed: 12/08/16 13:21> - General Chief Complaint: S/S of Possible Stroke Stated Complaint: WEAKNESS Time Seen by Provider: 12/08/16 10:08 Notes: Patient is an 81 year old male who presents to the ED with complaints of RUE weakness with onset around 0900 this morning. Patient states that when he woke up around 0730 this morning, he noticed his right arm was tingling but states he didnt think much of it because he sleeps on his side. He had his first cup of coffee at 0830 and had no noted weakness. He then had another cup of coffee and states when he picked the cup up he set it down right away because he knew something was not right. Patient states when he got to the ED he noticed his penmanship when writing his name was not as good as it normally is. He is right handed. He also has some nausea and thinks his BP is elevated. It was 160 /82 upon arrival to the ED. He denies any difficulty with ambulating. (ARISTEO SOTO) This 81-year-old patient was admitted to the hospital on 07/27/2016 with symptoms consistent with a TIA. He had a recurrence of the systems during the night on that admission and was noted to have a brief run of nonsustained V. tach at the time. He did not recall palpitations. By his history, he was discharged on Plavix once daily, and 240 mg of aspirin daily. He denies coronary artery disease history. He does report some slight right hand weakness ever since that TIA episode. He states the right hand weakness today is more pronounced than it had been for the last several months. On exam his right hand job developer is perhaps 4 out of 5 for the left hand is 5 out of 5 and the patient is right-handed. There are no other identified muscle weaknesses or muscle strength asymmetry is noted on exam. The primary way he is able to show that the right hand weakness is worse than his current baseline is when he tries to write his name and it is not as distinct as he reports it normally is. He was able to grasp the pen, initially he tried to write holding the pen almost at midshaft. I had him try again holding the pen down lower as would normally be done and the handwriting still looked about the same. 12:45 PM By history the patient woke up with the right hand tingling and it is unclear if he really had increased weakness in the hand. There is no other motor abnormality noted, there are no difficulties with thought processes. He is currently on Plavix and aspirin. He is 81 years old. His symptoms have not worsened at all between being seen at 10:30 AM and 12:45 PM. For all of these reasons, he IS NOT a TPA candidate. (GERBER SINGLETON) - Related Data Allergies/Adverse Reactions: Penicillins Allergy (Severe, Verified 12/08/16 10:02) Hives Past Medical History - General Information source: Patient - Social History Smoking Status: Never Smoker Chew tobacco use (# tins/day): No Frequency of alcohol use: None Drug Abuse: None Family History: CAD - Past Medical History Cardiac Medical History: Reports: Hx Hypercholesterolemia, Hx Hypertension Neurological Medical History: Reports: Other - TIA July 2016 GI Medical History: Reports: Hx Gastroesophageal Reflux Disease Musculoskeltal Medical History: Reports Hx Arthritis - mild Past Surgical History: Reports: Hx Tonsillectomy - Immunizations Immunizations up to date: No Hx Diphtheria, Pertussis, Tetanus Vaccination: No <ARISTEO SOTO - Last Filed: 12/08/16 12:54> Review of Systems - Review of Systems Constitutional: See HPI, Weakness - RUE EENT: No symptoms reported Cardiovascular: No symptoms reported Respiratory: No symptoms reported Gastrointestinal: No symptoms reported Genitourinary: No symptoms reported Male Genitourinary: No symptoms reported Musculoskeletal: No symptoms reported Skin: No symptoms reported Hematologic/Lymphatic: No symptoms reported Neurological/Psychological: See HPI, Weakness - RUE <ARISTEO SOTO - Last Filed: 12/08/16 12:54> Physical Exam - General General appearance: Appears well, Alert In distress: None - HEENT Head: Normocephalic, Atraumatic Eyes: Normal Extraocular movements intact: Yes Pupils: PERRL Neck: No: Carotid bruit - Respiratory Respiratory status: No respiratory distress Breath sounds: Normal - Cardiovascular Rhythm: Regular Heart sounds: Normal auscultation Murmur: No - Abdominal Inspection: Normal Distension: No distension Bowel sounds: Normal Tenderness: Nontender - Back Back: Normal - Extremities General upper extremity: Normal inspection, Other - 5/5 strength in left job developer, 4 /5 strength in right job developer General lower extremity: Normal inspection, Normal strength - Neurological Neuro grossly intact: Yes Cognition: Normal Orientation: AAOx4 Deven Coma Scale Eye Opening: Spontaneous Deven Coma Scale Verbal: Oriented [place] Coma Scale Motor: Obeys Commands Deven Coma Scale Total: 15 Speech: Normal Motor strength normal: LUE, LLE, RLE. No: RUE - 4/5 job developer strength Additional motor exam normals: Other - normal finger to nose test. No: Pronator drift Sensory: Normal - Psychological Associated symptoms: Normal affect, Normal mood - Skin Skin Temperature: Warm Skin Moisture: Dry Skin Color: Normal <ARISTEO SOTO - Last Filed: 12/08/16 12:54> <GERBER SINGLETON - Last Filed: 12/08/16 13:21> - Vital signs Vitals: Temp Pulse Resp BP Pulse Ox 98.0 F 76 12 160/82 H 100 12/08/16 10:02 12/08/16 10:02 12/08/16 10:02 12/08/16 10:02 12/08/16 10:02 - Neurological Notes: Can hold a pen without difficulty but has to work to write, writing is not as clear as it normally is. (ARISTEO SOTO) Course - Laboratory Result Diagrams: 12/08/16 10:24 12/08/16 10:24 - Consults Dr. Seo Time consulted: 12:50 <ARISTEO SOTO - Last Filed: 12/08/16 12:54> - Laboratory Result Diagrams: 12/08/16 10:24 12/08/16 10:24 - Diagnostic Test Radiology reviewed: Image reviewed, Reports reviewed - CT scan of the head does not show any acute disease. There is chronic microvascular ischemic changes, old lacunar infarcts old cortical infarcts. Chest x-ray is unremarkable. - EKG Interpretation by De EKG shows normal: Sinus rhythm, [place], Intervals, QRS Complexes, ST-T Waves Rate: Normal - 69 Rhythm: NSR P Waves: LAE When compared to previous EKG there are: No significant change <GERBER SINGLETON - Last Filed: 12/08/16 13:21> - Vital Signs Vital signs: Temp Pulse Resp BP Pulse Ox 98.0 F 76 18 165/91 H 97 12/08/16 10:02 12/08/16 10:02 12/08/16 12:29 12/08/16 12:29 12/08/16 12:29 - Laboratory Laboratory results interpreted by me: 12/08/16 12/08/16 12/08/16 10:24 10:24 10:24 RBC 3.92 L Hgb 12.9 L Hct 37.8 L RDW 14.1 H Sodium 132.9 L Chloride 94 L Creatine Kinase 318 H CK-MB (CK-2) 5.41 H - Consults Dr. Seo Reason for consultation: 12/08/16 12:50 Discussed patient. Patient is stable for discharge home and can follow up with PCP in office. (ARISTEO SOTO) Discharge <ARISTEO SOTO - Last Filed: 12/08/16 12:54> <GERBER SINGLETON - Last Filed: 12/08/16 13:21> - Discharge Clinical Impression: Weakness of right hand Condition: Stable Disposition: HOME, SELF-CARE Additional Instructions: Your increased right hand weakness is quite subtle and seems to be mostly manifested as an inability to sign your name as distinctly as you normally would. You are presently on maximal therapy to prevent TIAs and strokes. Follow-up with Dr. Alvarado in the office tomorrow to review your symptoms and recommendations for any change in management or referral to a neurologist. RETURN TO THE EMERGENCY ROOM IF ANY NEW OR WORSENING SYMPTOMS. Referrals: MIGUEL ALVARADO MD [Primary Care Provider] - Follow up tomorrow Scribe Attestation: 12/08/16 12:53 I personally performed the services described in the documentation, reviewed and edited the documentation which was dictated to the scribe in my presence, and it accurately records my words and actions. (GERBER SINGLETON) Scribe Documentation - Scribe Written by Durane:: carrillo Hernadez, 12/08/16, 1052 acting as scribe for :: Dave <ARISTEO SOTO - Last Filed: 12/08/16 12:54>
[2016-12-08 10:56] LABS: ALANINE AMINOTRANSFERASE 40 U/L (21-72); ALBUMIN 4.5 g/dL (3.5-5.0); ALKALINE PHOSPHATASE 68 U/L (38-126); ANION GAP 9 (5-19); ASPARTATE AMINO TRANSFERASE 35 U/L (17-59); BILIRUBIN,DIRECT 0.4 mg/dL (0.0-0.4); BILIRUBIN,TOTAL 0.9 mg/dL (0.2-1.3); BLOOD UREA NITROGEN 11 mg/dL (7-20); CALCIUM 9.8 mg/dL (8.4-10.2); CARBON DIOXIDE 30 mmol/L (22-30); CHLORIDE 94 mmol/L (98-107); CREATINE KINASE 318 U/L (55-170); CREATININE RESULT 1.02 mg/dL (0.52-1.25); GLUCOSE 106 mg/dL (75-110); POTASSIUM 4.5 mmol/L (3.6-5.0); SODIUM 132.9 mmol/L (137-145)
[2016-12-08 11:08] LABS: CREATINE KINASE MB 5.41 ng/mL (<4.55)
[2016-12-08 11:11] LABS: TROPONIN I < 0.012 ng/mL
[2016-12-08] MEDS ORDERED: ONDANSETRON HCL INJ/PF 4 MG/2 ML SDV IV ONE (11:56)
[2016-12-08 12:51] VITALS: BP 165/91
--- NOTE | 2016-12-08 14:53 | EKG REPORT ---
SEVERITY:- BORDERLINE ECG - SINUS RHYTHM PROBABLE LEFT ATRIAL ABNORMALITY : Confirmed by: Forest Pastor MD 08-Dec-2016 14:52:22
== END 2016-12-08 12:59 | disposition home or self-care (01) ==
LOC: ER 09:59
DX: R53.1 Weakness (principal)
CPT/HCPCS: 93005; 99285; 96374; 36415; 82553; 82550; 85025; 85610; 85730; 80053; 84484; 71010; 70450; 93010; J2405

== ENCOUNTER 2017-02-04 13:29 | Emergency (ER) | payer MEDICARE, BC ==
--- NOTE | 2017-02-04 13:52 | ER Document Report ---
ED Medical Screen (RME) - General Chief Complaint: Black/Tarry Stools Stated Complaint: BLACK,TARRY STOOLS Time Seen by Provider: 02/04/17 13:42 Notes: 81-year-old male patient on Plavix, reports onset last night of black tarry stools. Told to come to the emergency room by his primary care provider. I have greeted and performed a rapid initial assessment of this patient. A comprehensive ED assessment and evaluation of the patient, analysis of test results and completion of the medical decision making process will be conducted by additional ED providers. TRAVEL OUTSIDE OF THE [place] IN LAST 30 DAYS: No - Related Data Allergies/Adverse Reactions: Penicillins Allergy (Severe, Verified 02/04/17 13:42) Hives Past Medical History - Social History Chew tobacco use (# tins/day): No Frequency of alcohol use: None Drug Abuse: None - Past Medical History Cardiac Medical History: Reports: Hx Hypercholesterolemia, Hx Hypertension Denies: Hx Coronary Artery Disease, Hx Heart Attack Pulmonary Medical History: Denies: Hx Asthma, Hx Bronchitis, Hx COPD, Hx Pneumonia Neurological Medical History: Denies: Hx Cerebrovascular Accident, Hx Seizures Endocrine Medical History: Denies: Hx Diabetes Mellitus Type 1, Hx Diabetes Mellitus Type 2 Renal/ Medical History: Denies: Hx Peritoneal Dialysis GI Medical History: Reports: Hx Gastroesophageal Reflux Disease. Denies: Hx Hepatitis, Hx Hiatal Hernia, Hx Ulcer Musculoskeltal Medical History: Reports Hx Arthritis - mild Infectious Medical History: Denies: Hx Hepatitis Past Surgical History: Reports: Hx Tonsillectomy. Denies: Hx Open Heart Surgery , Hx Pacemaker - Immunizations Immunizations up to date: No Hx Diphtheria, Pertussis, Tetanus Vaccination: No Physical Exam - Vital signs Vitals: Temp Pulse Resp BP Pulse Ox 98.2 F 99 16 129/73 H 98 02/04/17 13:37 02/04/17 13:37 02/04/17 13:37 02/04/17 13:37 02/04/17 13:37 Course - Vital Signs Vital signs: Temp Pulse Resp BP Pulse Ox 98.2 F 99 16 129/73 H 98 02/04/17 13:37 02/04/17 13:37 02/04/17 13:37 02/04/17 13:37 02/04/17 13:37
[2017-02-04 14:26] LABS: ABSOLUTE LYMPHOCYTES (AUTO) 1.4 10^3/uL (0.5-4.7); ABSOLUTE MONOCYTES (AUTO) 0.7 10^3/uL (0.1-1.4); ABSOLUTE NEUT (AUTO) 4.3 10^3/uL (1.7-8.2); BASOPHILS % (AUTO) 0.5 % (0-2); EOSINOPHILS % (AUTO) 0.4 % (0-6); HEMATOCRIT 32.7 % (37.9-51.0); HEMOGLOBIN 11.3 g/dL (13.5-17.0); HGB HCT DIFFERENCE 1.2; LYMPHOCYTES % (AUTO) 22.2 % (13-45); MEAN CORPUSCULAR HEMOGLOBIN 33.3 pg (27.0-33.4); MEAN CORPUSCULAR HGB CONC 34.5 g/dL (32.0-36.0); MEAN CORPUSCULAR VOLUME 97 fl (80-97); MONOCYTES % (AUTO) 11.4 % (3-13); RED BLOOD COUNT 3.39 10^6/uL (4.35-5.55); RED CELL DISTRIBUTION WIDTH 13.7 % (11.5-14.0); SEGMENTED NEUTROPHILS % (AUTO) 65.5 % (42-78); WHITE BLOOD COUNT 6.5 10^3/uL (4.0-10.5)
[2017-02-04 14:30] LABS: PROTHROMBIN TIME 13.6 SEC (11.4-15.4)
[2017-02-04 14:34] LABS: APPEARANCE,URINE SLIGHTLY-CLOUDY; BILIRUBIN,URINE NEGATIVE (NEGATIVE); GLUCOSE, URINE NEGATIVE (NEGATIVE); KETONES,URINE NEGATIVE (NEGATIVE); LEUKOCYTE ESTERASE,URINE TRACE (NEGATIVE); NITRITE,URINE NEGATIVE (NEGATIVE); PROTEIN,URINE NEGATIVE (NEGATIVE); URINE SPECIFIC GRAVITY 1.019; UROBILINOGEN,URINE NEGATIVE mg/dL (<2.0)
[2017-02-04 14:55] LABS: ALANINE AMINOTRANSFERASE 34 U/L (21-72); ALBUMIN 4.3 g/dL (3.5-5.0); ALKALINE PHOSPHATASE 49 U/L (38-126); ANION GAP 11 (5-19); ASPARTATE AMINO TRANSFERASE 28 U/L (17-59); BILIRUBIN,DIRECT 0.4 mg/dL (0.0-0.4); BILIRUBIN,TOTAL 0.4 mg/dL (0.2-1.3); BLOOD UREA NITROGEN 43 mg/dL (7-20); CALCIUM 9.7 mg/dL (8.4-10.2); CARBON DIOXIDE 29 mmol/L (22-30); CHLORIDE 95 mmol/L (98-107); GLUCOSE 105 mg/dL (75-110); POTASSIUM 4.2 mmol/L (3.6-5.0); SODIUM 135.1 mmol/L (137-145); TOTAL PROTEIN 6.6 g/dL (6.3-8.2)
[2017-02-04] MEDS ORDERED: NORMAL SALINE 1000 ML 1,000 ML IV PRN (19:11)
[2017-02-04] MEDS ORDERED: PANTOPRAZOLE SODIUM 40 MG VIAL IV ONE (19:11)
--- NOTE | 2017-02-04 19:46 | ER Document Report ---
ED General - General Chief Complaint: Black/Tarry Stools Stated Complaint: BLACK,TARRY STOOLS Time Seen by Provider: 02/04/17 13:42 TRAVEL OUTSIDE OF THE [place] IN LAST 30 DAYS: No - HPI Notes: Patient is an 81-year-old male with a history of hypertension, GERD, TIA, diverticulosis presents the ED complaining of black tarry stool 3 days. Patient states that he has had one bowel movement each day over the last 3 days and noticed black tarry stools. Patient states that he is other mulligan healthy and feels well. He is eating and drinking without difficulties. He is urinating normally. Patient states that he notified his primary care doctor who told him to come to the emergency department. Patient states that his last colonoscopy was 4 years ago and patient has never had an endoscopy performed. Patient states that he is on Plavix for his risk factors and TIA, but denies any significant cardiac history. Patient denies any recent illness. Denies any headache, fever, neck pain, URI, sore throat, chest pain, palpitations, syncope, cough, shortness of breath, wheeze, dyspnea, abdominal pain, nausea/ vomiting, urinary retention, dysuria, hematuria, back pain, loss of control of bowel or bladder, numbness/tingling, muscle paralysis/weakness, or rash. - Related Data Allergies/Adverse Reactions: Penicillins Allergy (Severe, Verified 02/04/17 13:42) Hives Past Medical History - Social History Smoking Status: Never Smoker Chew tobacco use (# tins/day): No Frequency of alcohol use: None Drug Abuse: None Family History: CAD Patient has suicidal ideation: No Patient has homicidal ideation: No - Past Medical History Cardiac Medical History: Reports: Hx Hypercholesterolemia, Hx Hypertension Denies: Hx Coronary Artery Disease, Hx Heart Attack Pulmonary Medical History: Denies: Hx Asthma, Hx Bronchitis, Hx COPD, Hx Pneumonia Neurological Medical History: Denies: Hx Cerebrovascular Accident, Hx Seizures Endocrine Medical History: Denies: Hx Diabetes Mellitus Type 1, Hx Diabetes Mellitus Type 2 Renal/ Medical History: Denies: Hx Peritoneal Dialysis GI Medical History: Reports: Hx Gastroesophageal Reflux Disease. Denies: Hx Hepatitis, Hx Hiatal Hernia, Hx Ulcer Musculoskeltal Medical History: Reports Hx Arthritis - mild Infectious Medical History: Denies: Hx Hepatitis Past Surgical History: Reports: Hx Tonsillectomy. Denies: Hx Open Heart Surgery , Hx Pacemaker - Immunizations Immunizations up to date: No Hx Diphtheria, Pertussis, Tetanus Vaccination: No Review of Systems - Review of Systems Notes: REVIEW OF SYSTEMS: CONSTITUTIONAL : Denies fever, chills, or sweats. Denies recent illness. EENT: Denies eye, ear, throat, or mouth pain or symptoms. Denies nasal or sinus congestion or discharge. Denies throat, tongue, or mouth swelling or difficulty swallowing. CARDIOVASCULAR: Denies chest pain. Denies palpitations or racing or irregular heart beat. Denies ankle edema. RESPIRATORY: Denies cough, cold, or chest congestion. Denies shortness of breath, difficulty breathing, or wheezing. GASTROINTESTINAL: Denies abdominal pain or distention. Denies nausea, vomiting , or diarrhea. see hpi. GENITOURINARY: Denies difficulty urinating, painful urination, burning, frequency, blood in urine, or discharge. MUSCULOSKELETAL: Denies back or neck pain or stiffness. Denies joint pain or swelling. SKIN: Denies rash, lesions or sores. NEUROLOGICAL: Denies confusion or altered mental status. Denies passing out or loss of consciousness. Denies dizziness or lightheadedness. Denies headache. Denies weakness or paralysis or loss of use of either side. Denies problems with gait or speech. Denies sensory loss, numbness, or tingling. Denies seizures. ALL OTHER SYSTEMS REVIEWED AND NEGATIVE. Dictation was performed using [employer] voice recognition software Physical Exam - Vital signs Vitals: Temp Pulse Resp BP Pulse Ox 98.2 F 99 16 129/73 H 98 02/04/17 13:37 02/04/17 13:37 02/04/17 13:37 02/04/17 13:37 02/04/17 13:37 Notes: PHYSICAL EXAMINATION: GENERAL: Well-appearing, well-nourished and in no acute distress. A&Ox4 HEAD: Atraumatic, normocephalic. EYES: Pupils equal round and reactive to light, extraocular movements intact, sclera anicteric, conjunctiva are normal. ENT: Nares patent and without discharge. oropharynx clear without exudates. Moist mucous membranes. NECK: Normal range of motion, supple without lymphadenopathy LUNGS: Breath sounds clear to auscultation bilaterally and equal. No wheezes rales or rhonchi. HEART: Regular rate and rhythm without murmurs, rubs, gallops. ABDOMEN: Soft, nontender, nondistended abdomen. No guarding, no rebound. No masses appreciated. Normal bowel sounds present. No CVA tenderness bilaterally. Musculoskeletal: FROM to passive/active. Strength 5+/5. Extremities: No cyanosis, clubbing, or edema b/l. Peripheral pulses 2+. Capillary refill less than 3 seconds. NEUROLOGICAL: Cranial nerves grossly intact. Normal speech. Normal sensory, motor exams PSYCH: Normal mood, normal affect. SKIN: Warm, Dry, normal turgor, no rashes or lesions noted. Course - Re-evaluation Re-evalutation: 02/04/17 20:45 An afebrile, well-hydrated, 81-year-old male who presents ED with a GI bleed. Vitals are stable. PE is otherwise unremarkable. Patient's hemoglobin decreased from 11.3-10.7 over the last 6 hours. His guaiac was positive. Patient is otherwise asymptomatic and stable. Fluids were started as well as protonix. Pt to hold his plavix and remain NPO (last PO intake was 7 hours ago per pt). We currently do not have GI air pollution compliance inspector. Pt would like to go to [facility]. [facility] transfer center called; awaiting call back. 02/04/17 22:19 Dr. Woodward did accept patient. Pt already has bed assignment and they are working on transport. Pt is in agreement with transfer/plan. - Vital Signs Vital signs: Temp Pulse Resp BP Pulse Ox 98.3 F 99 14 128/81 H 100 02/04/17 19:46 02/04/17 13:37 02/04/17 21:01 02/04/17 22:00 02/04/17 22:01 - Laboratory Result Diagrams: 02/04/17 20:20 02/04/17 14:08 Laboratory results interpreted by me: 02/04/17 02/04/17 02/04/17 14:08 14:08 14:15 RBC 3.39 L Hgb 11.3 L Hct 32.7 L MCH Sodium 135.1 L Chloride 95 L BUN 43 H Creatinine 1.50 H Est GFR ( Amer) 54 L Est GFR (Non-Af Amer) 45 L Ur Leukocyte Esterase TRACE H 02/04/17 20:20 RBC 3.16 L Hgb 10.7 L Hct 30.4 L MCH 33.7 H Sodium Chloride BUN Creatinine Est GFR ( Amer) Est GFR (Non-Af Amer) Ur Leukocyte Esterase Discharge - Discharge Clinical Impression: GI bleed Qualifiers: GI bleed type/associated pathology: melena Qualified Code(s): K92.1 - Melena Condition: Stable Referrals: MIGUEL EMERY MD [Primary Care Provider] - Follow up as needed
[2017-02-04] MEDS: PANTOPRAZOLE SODIUM 40 MG VIAL IV PRN ×2 (20:04→21:33)
[2017-02-04 20:39] LABS: ABSOLUTE LYMPHOCYTES (AUTO) 1.4 10^3/uL (0.5-4.7); ABSOLUTE MONOCYTES (AUTO) 0.7 10^3/uL (0.1-1.4); ABSOLUTE NEUT (AUTO) 4.6 10^3/uL (1.7-8.2); BASOPHILS % (AUTO) 0.7 % (0-2); EOSINOPHILS % (AUTO) 0.6 % (0-6); HEMATOCRIT 30.4 % (37.9-51.0); HEMOGLOBIN 10.7 g/dL (13.5-17.0); HGB HCT DIFFERENCE 1.7; LYMPHOCYTES % (AUTO) 20.6 % (13-45); MEAN CORPUSCULAR HEMOGLOBIN 33.7 pg (27.0-33.4); MEAN CORPUSCULAR VOLUME 96 fl (80-97); MONOCYTES % (AUTO) 10.7 % (3-13); RED BLOOD COUNT 3.16 10^6/uL (4.35-5.55); RED CELL DISTRIBUTION WIDTH 13.5 % (11.5-14.0); SEGMENTED NEUTROPHILS % (AUTO) 67.4 % (42-78); WHITE BLOOD COUNT 6.8 10^3/uL (4.0-10.5)
[2017-02-04] MEDS ORDERED: PANTOPRAZOLE SODIUM 40 MG VIAL IV PRN (21:32)
[2017-02-04 23:20] VITALS: BP 127/75
== END 2017-02-04 23:20 | disposition short-term general hospital (02) ==
LOC: ER 13:29
DX: K92.2 Gastrointestinal hemorrhage, unspecified (principal); I10 Essential (primary) hypertension; Z79.02 Long term (current) use of antithrombotics/antiplatelets
CPT/HCPCS: 96376; 99285; 96365; 96366; 86900; 86901; 36415; 86850; 85025; 85610; 82272; 80053; 81001; C9113; J7030; S0164